=== PATIENT | male | born 1965 | race Caucasian/White ===

== ENCOUNTER → 2020-07-09 | Outpatient (CLI) | payer BC ==
[2020-07-09 20:45] LABS: Chol/HDL Ratio 6.03; LDL Cholesterol,Calculated 155.6 mg/dL (0.0-131.0); VLDL Calculation 35.4 mg/dL (5.00-40.00)
[2020-07-12 04:21] LABS: Cow's Milk IgG 37.2 mcg/mL (< 2.0); Peanut IgG 3.5 mcg/mL (< 2.0); Pork IgG 2.2 mcg/mL (< 2.0)
[2020-07-12 04:22] LABS: Chicken Meat IgG <2.0 mcg/mL (< 2.0); Corn IgG 4.4 mcg/mL (< 2.0); Potato IgG <2.0 mcg/mL (< 2.0); Soybean IgG 2.6 mcg/mL (< 2.0); Tomato IgG 3.1 mcg/mL (< 2.0); Wheat IgG 5.5 mcg/mL (< 2.0)
== END | disposition home or self-care (01) ==
LOC: LABWHC1 08:14
PROVIDERS: ATTEND Otolaryngology
DX: J30.89 Other allergic rhinitis (principal); R53.82 Chronic fatigue, unspecified
CPT/HCPCS: 36415; 80061; 84403; 86001

== ENCOUNTER → 2020-07-27 | Outpatient (CLI) | payer BC ==
--- NOTE | 2020-07-27 23:05 | CT ---
EXAMINATION TYPE: CT sinus wo con DATE OF EXAM: 07/27/2020 COMPARISON: NONE HISTORY: sinusitis CT DLP: 609.4 mGycm. Automated Exposure Control for Dose Reduction was Utilized. TECHNIQUE: CT scan of the sinuses is performed without contrast, axial images are obtained, coronal r eformatted images are also reviewed. FINDINGS: Mild to moderate mucosal thickening involving left maxillary sinus anterior inferior aspect with few small mucous retention cysts and/or polyps. Tiny mucosal thickening anteroinferior right ma xillary sinus. Mild to minimal mucosal thickening ethmoid sinuses bilaterally. Focal mild to moderate mucosal thickening inferior frontal sinuses bilaterally. Sphenoid sinuses are clear. The surgically treated ostiomeatal complex is patent bilaterally on coronal image 29. Visualized portion of mastoid air cells show no abnormal opacification. The globes are intact bilat erally. IMPRESSION: Chronic paranasal sinus disease as detailed above. No acute sinusitis currently.
== END | disposition home or self-care (01) ==
LOC: RADCTMAIN 16:57
PROVIDERS: ATTEND Otolaryngology
DX: J32.9 Chronic sinusitis, unspecified (principal)
CPT/HCPCS: 70486